=== PATIENT | female | born 2000 ===

== ENCOUNTER → 2022-04-22 02:00 | Observation (INO) ==
[2022-04-22 00:55] LABS: Basophils % 0.2 %; Eosinophils # 0.1 K/mcL (0.0-0.6); Eosinophils % 0.9 %; Hemoglobin 10.3 g/dL (11.5-15.4); Immature Granulocytes % 0.7 % (0-4); Lymphocytes # 2.4 K/mcL (0.6-4.6); Lymphocytes % 22.8 %; Mean Corpuscular HGB Conc 33.2 g/dL (31.6-35.5); Mean Corpuscular Hemoglobin 31.2 pg (28.0-33.3); Mean Corpuscular Volume 93.9 fL (83.0-100.0); Mean Platelet Volume 10.1 fL (9.4-12.4); Monocytes % 9.7 %; Neutrophils # 6.9 K/mcL (1.6-8.9); Platelet Count 220 K/mcL (140-400); Red Cell Distribution Width 12.8 % (11.5-14.5); Segmented Neutrophils % 65.7 %; White Blood Count 10.4 K/mcL (4.3-11.1)
[2022-04-22 01:03] LABS: Protein/Creatinine Ratio,Urine 0.14 mg/mg (0.00-0.20)
[2022-04-22 01:15] LABS: Alanine Aminotransferase 7 Units/L (7-52); Aspartate Amino Transferase 11 Units/L (13-39); BUN/Creatinine Ratio 13 (6-26); Blood Urea Nitrogen 8 mg/dL (6-20); Lactate Dehydrogenase 135 Units/L (140-271); Uric Acid 4.3 mg/dL (2.3-7.6)
== END | disposition home or self-care (01) ==
LOC: 1NENULAB
PROVIDERS: ADMIT Obstetrics & Gynecology; ATTEND Obstetrics & Gynecology

== ENCOUNTER → 2022-05-04 17:40 | Observation (INO) | END | disposition home or self-care (01) | LOC: 1NENULAB | PROVIDERS: ADMIT Advanced Practice Midwife; ATTEND Advanced Practice Midwife ==

== ENCOUNTER 2022-05-08 | Inpatient (IN) ==
[2022-05-08] MEDS ORDERED: Famotidine 20 MG/2 ML VIAL IVP PRN (00:15)
[2022-05-08] MEDS ORDERED: Metoclopramide 10 MG/2 ML VIAL IVP PRN (00:15)
[2022-05-08] MEDS ORDERED: miSOPROStoL 25 MCG TABLET PO PRN (00:19)
[2022-05-08 01:33] LABS: Amphetamine Screen,Urine Negative ng/mL (Cutoff=1000); Barbiturate Screen,Urine Negative ng/mL (Cutoff=200); Benzodiazepines Screen,Urine Negative ng/mL (Cutoff=200); Cannabinoid Screen,Urine Negative ng/mL (Cutoff = 50); Cocaine Screen,Urine Negative ng/mL (Cutoff= 300); Opiate Screen,Urine Negative ng/mL (Cutoff=300); Phencyclidine Screen,Urine Negative ng/mL (Cutoff=25)
[2022-05-08] MEDS: Ringers Solution, Lactated 1,000 ML IVC SCH (01:38)
[2022-05-08 01:46] LABS: Basophils % 0.3 %; Eosinophils # 0.1 K/mcL (0.0-0.6); Hematocrit 31.3 % (35.3-44.9); Hemoglobin 10.5 g/dL (11.5-15.4); Immature Granulocytes % 0.8 % (0-4); Lymphocytes # 2.7 K/mcL (0.6-4.6); Lymphocytes % 22.9 %; Mean Corpuscular HGB Conc 33.5 g/dL (31.6-35.5); Mean Corpuscular Hemoglobin 31.3 pg (28.0-33.3); Mean Corpuscular Volume 93.2 fL (83.0-100.0); Mean Platelet Volume 10.8 fL (9.4-12.4); Monocytes # 1.1 K/mcL (0.0-1.3); Monocytes % 9.4 %; Neutrophils # 7.8 K/mcL (1.6-8.9); Platelet Count 232 K/mcL (140-400); Red Blood Count 3.36 M/mcL (3.82-4.97); Red Cell Distribution Width 12.8 % (11.5-14.5); Segmented Neutrophils % 65.6 %; White Blood Count 11.9 K/mcL (4.3-11.1)
[2022-05-08] MEDS ORDERED: EPHEDrine sulfate 50 MG/10 ML VIAL IVP PRN (06:37)
[2022-05-08] MEDS ORDERED: Morphine Sulfate 2 MG/ML SYRINGE IVP ONE (08:41)
[2022-05-08] MEDS ORDERED: miSOPROStoL 25 MCG TABLET PO ONE (16:51)
[2022-05-08] MEDS: Epidural Premix (fent/bupiv) 110 ML EP SCH ×2 (17:04→23:57)
[2022-05-08] MEDS ORDERED: Oxytocin 30 UNIT/503 ML BAG IVC SCH (21:00)
[2022-05-08] MEDS ORDERED: 0.9 % Sodium Chloride 1,000 ML ONE (23:10)
[2022-05-09] MEDS ORDERED: cefOXitin 1,000 MG in 0.9 % Sodium Chloride Mini Bag 100 ML IVPB ONE (01:04)
[2022-05-09 03:42] LABS: Hematocrit 30.1 % (35.3-44.9); Mean Corpuscular HGB Conc 33.2 g/dL (31.6-35.5); Mean Corpuscular Hemoglobin 31.1 pg (28.0-33.3); Mean Corpuscular Volume 93.5 fL (83.0-100.0); Mean Platelet Volume 10.5 fL (9.4-12.4); Platelet Count 220 K/mcL (140-400); Red Blood Count 3.22 M/mcL (3.82-4.97); Red Cell Distribution Width 12.7 % (11.5-14.5)
[2022-05-09 03:46] LABS: Prothrombin Time 10.7 Seconds (9.4-12.1)
[2022-05-09] MEDS ORDERED: Ketorolac 30 MG/ML VIAL IVP ONE (04:08)
[2022-05-09] MEDS ORDERED: Benzocaine/Menthol 56 GM AEROSOL SPRAY TP PRN (04:49)
[2022-05-09] MEDS ORDERED: Lanolin 7 G OINT...G. TP PRN (04:49)
[2022-05-09] MEDS ORDERED: Oxytocin 30 UNIT/503 ML BAG IVC SCH (04:49)
[2022-05-09] MEDS ORDERED: Ondansetron ODT 4 MG TAB.RAPDIS SL PRN (04:49)
[2022-05-09] MEDS: Acetaminophen 325 MG TABLET PO SCH ×4 (06:06→23:03)
[2022-05-09] MEDS ORDERED: Ringers Solution, Lactated 1,000 ML ONE (06:38)
[2022-05-09] MEDS: Ringers Solution, Lactated 1,000 ML IVC SCH (06:40)
[2022-05-09] MEDS: polyethylene glycoL 3350 17 GM POWD.PACK PO SCH (09:03)
[2022-05-09] MEDS: cefOXitin 1,000 MG in 0.9 % Sodium Chloride Mini Bag 100 ML IVPB SCH ×2 (09:10→17:08)
[2022-05-09] MEDS: MOM Conc 10 ML UD.LIQ PO SCH (09:11)
[2022-05-09] MEDS: Prenatal Vit/FA 1 EACH TABLET PO SCH (09:11)
[2022-05-09] MEDS: Ketorolac 30 MG/ML VIAL IVP SCH ×3 (10:11→23:03)
[2022-05-09] MEDS ORDERED: Ibuprofen 600 MG TABLET PO SCH (11:00)
[2022-05-09 13:04] VITALS: O2SAT 98
[2022-05-09] MEDS ORDERED: Sennosides 8.6 MG TABLET PO SCH (21:00)
[2022-05-10] MEDS: cefOXitin 1,000 MG in 0.9 % Sodium Chloride Mini Bag 100 ML IVPB SCH (02:48)
[2022-05-10 07:58] VITALS: BP 102/65; PULSE 76; TEMP 98.1
[2022-05-10] MEDS: Prenatal Vit/FA 1 EACH TABLET PO SCH (08:33)
[2022-05-10] MEDS: Acetaminophen 325 MG TABLET PO SCH (08:33)
[2022-05-10] MEDS: MOM Conc 10 ML UD.LIQ PO SCH (08:34)
[2022-05-10] MEDS: polyethylene glycoL 3350 17 GM POWD.PACK PO SCH (08:34)
== END 2022-05-10 13:33 | disposition home or self-care (01) | DRG 768 ==
LOC: 1NENULAB 00:01 → 1NENUOBS 05-09 04:41
PROVIDERS: ADMIT Student in an Organized Health Care Education/Training Program; ATTEND Student in an Organized Health Care Education/Training Program